=== PATIENT | female | born 1975 | race Caucasian/White ===

== ENCOUNTER → 2016-11-21 | Outpatient (CLI) | payer OTHER ==
[~2016-11-21] MED LIST: COLACE OR; FISH OIL1000 MG PO; FLAGYL 500MG.500 MG PO; LEVOFLOXACIN 5500 MG PO; LORTAB 5/500 501 TAB PO; METRONIDAZOLE500 M2 PO; MULTI-VITAMINS1 TAB PO; NIFEDIPINE PO; PERCOCET 10 MG1 EACH PO; PRENATAL PLUS1 TA1 PO; Tramadol HCl50 MG PO; ZOFRAN4 MG PO
--- NOTE | 2016-11-21 16:20 | RADIOLOGY REPORT PS360 ---
FOOT-LT-3 VIEWS HISTORY: Left foot pain TENDONITIS, PAIN COMPARISON: None FINDINGS: No fracture or dislocation. No lytic or blastic change. There is normal mineralization.. The joint spaces are well-preserved. No significant degenerative/arthritic changes. No erosive changes evident. There is a small calcific density overlying the anterior distal tibia probably due to small phlebolith IMPRESSION: No acute finding
== END ==
LOC: RAD 12:13
DX: M77.52 Other enthesopathy of left foot and ankle (principal)